=== PATIENT | female | born 1960 | race Caucasian/White ===

== ENCOUNTER 2016-10-04 09:26 | Inpatient (IN) | payer MEDICARE, OTHER ==
[2016-09-30 13:58] LABS: BASOPHILS 0.4 %; BASOPHILS ABSOLUTE 0.04 10/3/uL (0.0-0.16); EOSINOPHILS 2.4 %; EOSINOPHILS ABSOLUTE 0.27 10/3/uL (0.0-0.53); HEMOGLOBIN 12.7 g/dL (12.0-16.0); IMMATURE GRANULOCYTES 0.3 %; IMMATURE GRANULOCYTES ABSOLUTE 0.03 10/3/uL (0.0-0.11); LYMPHOCYTES 21.2 %; LYMPHOCYTES ABSOLUTE 2.37 10/3/uL (0.67-4.30); MEAN CORPUS HGB CONC 33.4 g/dL (32.0-36.0); MEAN PLATELET VOLUME 8.4 fL (9.2-13.0); MONOCYTES 6.3 %; NEUTROPHILS 69.4 %; NEUTROPHILS ABSOLUTE 7.76 10/3/uL (2.02-8.40); PLATELET COUNT 365 10/3/uL (150-400); RED CELL COUNT 4.44 10/6/uL (4.0-5.6)
[2016-09-30 13:59] LABS: MANUAL DIFF NO %; MEAN CORPUSCULAR HEMOGLOB 28.6 pg (26.0-34.0); MEAN CORPUSCULAR VOLUME 85.6 fL (80-100); RBC DISTRIBUTION WIDTH 15.2 % (12.0-16.0); WHITE BLOOD CELLS 11.2 10/3/uL (4.5-10.5)
[2016-09-30 14:07] LABS: INTERNATIONAL NORMAL RATI 0.9 UNITS (-); PARTIAL THROMBO TIME 27.9 SEC (22.5-37.2); PROTIME (NOT ORD) 12.5 SEC (12.0-14.5)
[2016-09-30 14:18] LABS: CHLORIDE, SERUM 107 MMOL/L (96-112); CO2 (CARBON DIOXIDE) 29 MMOL/L (24-34); GLUCOSE, SERUM 80 MG/DL (60-99); POTASSIUM, SERUM 4.3 MMOL/L (3.5-5.3); SODIUM, SERUM 142 MMOL/L (135-148)
[2016-09-30 14:19] LABS: BUN (BLOOD UREA NITROGEN) 20 MG/DL (6-23); CALCIUM, SERUM 9.2 MG/DL (8.5-10.4); CREATININE 1.08 MG/DL (0.55-1.02); GFR AFRICAN AMERICAN 67 ML/MIN (>=60); GFR NON AFRICAN AMERICAN 58 ML/MIN (>=60)
--- NOTE | ~2016-10-04 | DS ---
Discharge Summary [facility] [address] [place]. 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 OPERATIVE PROCEDURES PERFORMED DURING THE COURSE OF ADMISSION: Total thyroidectomy. ADMITTING HISTORY AND PHYSICAL: The patient is a 56-year-old female with a significant history of persistent hyperthyroidism. She has been treated with methimazole, but developed a systemic reaction. After discussing treatment options, she elected for surgical excision of this. PAST MEDICAL HISTORY: Pertinent for GERD, hypertension, diabetes, COPD, and hyperthyroidism. PAST SURGICAL HISTORY: Thyroid, tubal ligation, and hysterectomy. HOME MEDICATIONS: Included Nexium, lisinopril, Topamax, hydrocodone, Advair, albuterol, and metformin. ALLERGIES: METHIMAZOLE. SOCIAL HISTORY: Pertinent for smoking approximately one and a half to two packs a day. PHYSICAL EXAMINATION: GENERAL: She is awake, alert, in no acute distress. VITAL SIGNS: Stable. NECK: Examination of the neck revealed no massive thyromegaly. The thyroid gland was firm. HEART: Regular rate and rhythm. LUNGS: Clear. ABDOMEN: Soft and thin. EXTREMITIES: She was moving all extremities with ease and extremities were warm and had good pulses. HOSPITAL COURSE: Patient was admitted to the hospital following a total thyroidectomy on 10/04/2016. She did experience hypocalcemia postoperatively. This was thought to be from devascularization of parathyroid glands around the total thyroid specimen. Supportive care was given only at this point and consisted of IV calcium as well as administration of oral Rocaltrol 0.5 mcg p.o. b.i.d. She was also started on oral calcium 2000 mg p.o. t.i.d. She did require IV repletion and on the morning of 10/07/2016, had a serum calcium level in the mid 8's. She was asymptomatic with no [place] sign and complaints of numbness or tingling. She was deemed stable for discharge and discharged to home. Discharge Summary [place] [id number] [place] [address] NAME: SHANNAN KIMBLE : 64 STATUS : DIS IN PAT#: [id number] AGE: 56 ADM/REG DATE : 10/05/16 MR#: [id number] REPORT SERV DATE: 10/11/16 DICTATED BY: ANGELA MATHIS. DATE: 10/07/16 REPORT STATUS : Draft TRANSCRIBED BY: NATANAEL DATE: 10/07/16 DISPOSITION: To home. DISCHARGE MEDICATIONS: Include levothyroxine 137 mcg daily, Rocaltrol 0.5 mcg p.o. b.i.d., and calcium carbonate 2000 mg p.o. t.i.d. FOLLOWUP: Followup was with myself on 10/12/2016. SHAVON/NATANAEL Angela Mathis M.D. / [id number] CC: Hannah Preston MELISSA MORTON
--- NOTE | ~2016-10-04 | OP ---
Record Of Operation [facility] [address] [place]. [address] NAME: SHANNAN KIMBLE : 64 STATUS : ADM IN PAT#: [id number] AGE: 56 ADM/REG DATE : 10/05/16 MR#: [id number] REPORT SERV DATE: 10/06/16 DICTATED BY: ANGELA MATHIS DATE: 10/06/16 REPORT STATUS : Draft TRANSCRIBED BY: MODL DATE: 10/06/16 DATE OF PROCEDURE: 10/04/2016 PREOPERATIVE DIAGNOSIS: Hyperthyroidism. POSTOPERATIVE DIAGNOSIS: Hyperthyroidism. OPERATIVE PROCEDURE PERFORMED: Total thyroidectomy and nerve integrity monitoring. INDICATIONS AND SIGNIFICANT HISTORY: The patient is a 56-year-old female with a significant history of long-standing hyperthyroidism. She had been treated with methimazole and was doing well until she developed a systemic rash. Upon discussing her other treatment options with her, which included nonsurgical means via radioactive iodine, the patient selected surgical extirpation of the gland. OPERATIVE PROCEDURE AND FINDINGS: After informed consent was obtained, the patient was brought to the operating room and placed on the operating table in the supine position, at which point, general endotracheal anesthesia was induced by the Anesthesia Service utilizing a NIM nerve-monitoring tube. The NIM nerve monitor was placed via glide scope intubation and reference and ground electrodes were set up to monitor the laryngeal musculature throughout the course of the case. At this point, a horizontal skin incision was planned two fingerbreadths above the sternal notch. Subplatysmal flaps were elevated superiorly and inferiorly and strap muscles were divided in the midline and retracted laterally. The left thyroid lobe was dissected first in the left thyroid lobe. Superior pole vessels and inferior pole vessels were divided with Harmonic scalpel and the tissue that appeared to be parathyroid was dissected off the surface of the gland both superiorly and inferiorly and the left in situ. Next, the thyroid isthmus was divided adjacent to the right thyroid lobe and a combination of sharp and blunt dissection was used to elevate the left thyroid lobe from its position at Redman's ligament on the lateral surface of the trachea. The left recurrent laryngeal nerve was identified and preserved throughout the course of the case. Attention was then turned toward the right neck and specimen was sent to permanent pathology as left thyroid lobe. Attention was then turned toward the right thyroid lobe where superior and inferior pole vessels were divided with Harmonic scalpel and a combination of sharp and blunt dissection was used to elevate the right thyroid lobe from its position at Redman's ligament. No inferior parathyroid tissue was identified on the right side. Once the right thyroid lobe had been elevated, the wound was inspected after identifying no additional bleeding. Hemostasis was achieved with direct pressure and suction bipolar cautery where it needed. Wound was closed in multiple layers consisting of deep Vicryl suture followed by closure of the skin with Prolene. Steri-Strips were applied. The patient was turned back toward anesthesia, aroused from anesthesia, and taken to the postanesthesia care unit in satisfactory condition. Complications are none immediately intraoperatively. Recurrent laryngeal nerves were identified and preserved. She had what appeared to be parathyroid tissue in the left side. No right inferior parathyroid was identified during the course of dissection, however. Record Of Operation [place] [id number] [facility] [place]. [address] NAME: SHANNAN KIMBLE : 64 STATUS : ADM IN [facility]#: [id number] AGE: 56 ADM/REG DATE : 10/05/16 MR#: [id number] REPORT SERV DATE: 10/06/16 DICTATED BY: ANGELA MATHIS. DATE: 10/06/16 REPORT STATUS : Draft TRANSCRIBED BY: NATANAEL DATE: 10/06/16 SHAVON/NATANAEL Angela Mathis M.D. / [id number] CC: Agnela Mathis M.D.
[~2016-10-04 09:26] MED LIST: 15KENA.025 T; ADVAIR INH; ATARAX50B PO; BACTRIM DS1 TAB PO; EFFEX75 PO; GLUCPH PO; IMITREX25 PO; LISINOPRIL40 MG PO; NEXIUM40 PO; NORCO1 TAB PO; SPIRIVA INH; TOPAMAX50 MG PO; VALIUM10 MG PO
[2016-10-04 11:09] LABS: PTH (INTRAOPERATIVE) 43.3 PG/ML (10.0-65.0); PTH TAT 0 Hrs 00 Mins
[2016-10-04 12:33] LABS: PTH (INTRAOPERATIVE) 6.3 PG/ML (10.0-65.0)
[2016-10-04 20:16] LABS: CHLORIDE, SERUM 110 MMOL/L (96-112); CREATININE 0.96 MG/DL (0.55-1.02); GFR AFRICAN AMERICAN 78 ML/MIN (>=60); GFR NON AFRICAN AMERICAN 67 ML/MIN (>=60); PHOSPHORUS, SERUM 3.2 MG/DL (2.5-4.5); POTASSIUM, SERUM 3.8 MMOL/L (3.5-5.3); SODIUM, SERUM 141 MMOL/L (135-148)
[2016-10-04 20:18] LABS: BUN (BLOOD UREA NITROGEN) 11 MG/DL (6-23); CALCIUM, SERUM 7.8 MG/DL (8.5-10.4); CO2 (CARBON DIOXIDE) 21 MMOL/L (24-34); GLUCOSE, SERUM 133 MG/DL (60-99)
[2016-10-05 06:00] LABS: CALCIUM, SERUM 7.7 MG/DL (8.5-10.4); CHLORIDE, SERUM 112 MMOL/L (96-112); CO2 (CARBON DIOXIDE) 24 MMOL/L (24-34); CREATININE 0.89 MG/DL (0.55-1.02); GFR AFRICAN AMERICAN 85 ML/MIN (>=60); GFR NON AFRICAN AMERICAN 73 ML/MIN (>=60); GLUCOSE, SERUM 142 MG/DL (60-99); POTASSIUM, SERUM 3.6 MMOL/L (3.5-5.3); SODIUM, SERUM 146 MMOL/L (135-148)
[2016-10-05 06:03] LABS: BUN (BLOOD UREA NITROGEN) 16 MG/DL (6-23); PHOSPHORUS, SERUM 4.8 MG/DL (2.5-4.5)
[2016-10-06 06:40] LABS: BUN (BLOOD UREA NITROGEN) 15 MG/DL (6-23); CALCIUM, SERUM 7.5 MG/DL (8.5-10.4); CHLORIDE, SERUM 115 MMOL/L (96-112); CO2 (CARBON DIOXIDE) 26 MMOL/L (24-34); CREATININE 0.76 MG/DL (0.55-1.02); GFR AFRICAN AMERICAN 103 ML/MIN (>=60); GFR NON AFRICAN AMERICAN 89 ML/MIN (>=60); GLUCOSE, SERUM 120 MG/DL (60-99); POTASSIUM, SERUM 3.9 MMOL/L (3.5-5.3); SODIUM, SERUM 148 MMOL/L (135-148)
[2016-10-06 06:42] LABS: PHOSPHORUS, SERUM 6.3 MG/DL (2.5-4.5)
[2016-10-07 07:23] LABS: BUN (BLOOD UREA NITROGEN) 17 MG/DL (6-23); CALCIUM, SERUM 8.3 MG/DL (8.5-10.4); CHLORIDE, SERUM 110 MMOL/L (96-112); CO2 (CARBON DIOXIDE) 29 MMOL/L (24-34); GFR AFRICAN AMERICAN 97 ML/MIN (>=60); GFR NON AFRICAN AMERICAN 84 ML/MIN (>=60); GLUCOSE, SERUM 105 MG/DL (60-99); PHOSPHORUS, SERUM 6.3 MG/DL (2.5-4.5); SODIUM, SERUM 144 MMOL/L (135-148)
[2016-10-07] MEDS ORDERED: LEVOTHYROXIN137 MCG PO (11:46)
[2016-10-07] MEDS ORDERED: ROCALTROL0.5 MCG PO (11:46)
[2016-10-07] MEDS ORDERED: TUMSROLL PO (11:47)
[2016-10-07] MEDS ORDERED: NORCO1 TAB PO (11:50)
== END 2016-10-07 15:18 | disposition home or self-care (01) | DRG 627 ==
LOC: SDC 09:26 → SDC/OF 12:20 → 5SO 14:28
PROVIDERS: Otolaryngology
PROC: 0GTK0ZZ Resection of Thyroid Gland, Open Approach (ICD-10-PCS; principal; 2016-10-05)
DX: E21.0 Primary hyperparathyroidism (principal); E83.42 Hypomagnesemia; I10 Essential (primary) hypertension; K21.9 Gastro-esophageal reflux disease without esophagitis; E11.9 Type 2 diabetes mellitus without complications; J44.9 Chronic obstructive pulmonary disease, unspecified; F41.9 Anxiety disorder, unspecified; G89.29 Other chronic pain; Z90.710 Acquired absence of both cervix and uterus; Z98.890 Other specified postprocedural states; Z79.899 Other long term (current) drug therapy; Z79.84 Long term (current) use of oral hypoglycemic drugs; Z83.3 Family history of diabetes mellitus; Z80.8 Family history of malignant neoplasm of other organs or systems; Z82.49 Family history of ischemic heart disease and other diseases of the circulatory system
CPT/HCPCS: 80048; 82330; 82962; 83735; 83970; 84100; 84132; 85025; 85610; 85730; 88307; 93005; 94640; A9270-GY; C1781; J0610; J0690; J1652; J2250; J2270; J2370; J3010; J3475